=== PATIENT | male | born 1970 | race Caucasian/White ===

== ENCOUNTER 2018-02-16 09:43 | Emergency (ER) | payer BC ==
[2018-02-16] MEDS ORDERED: ONDANSETRON 4 MG TAB.RAPDIS PO ONE (10:23)
[2018-02-16] MEDS ORDERED: PROCHLORPERAZINE EDISYLATE INJ 10 MG/2 ML VIAL IV ONE (10:23)
[2018-02-16] MEDS ORDERED: NORMAL SALINE 1000 ML 1,000 ML IV ONE (10:23)
--- NOTE | 2018-02-16 11:01 | RADIOLOGY REPORT (SQ) ---
EXAM DESCRIPTION: CT HEAD WITHOUT COMPLETED DATE/TIME: 02/16/2018 10:40 am REASON FOR STUDY: frontal headache COMPARISON: None. TECHNIQUE: Axial images acquired through the brain without intravenous contrast. Images reviewed wi th bone, brain and subdural windows. Images stored on PACS. All CT scanners at this facility use dose modulation, iterative reconstruction, and/or weight based d osing when appropriate to reduce radiation dose to as low as reasonably achievable (ALARA). [facility]: Dose Right [facility]: CareDose [facility]: Dose Right [facility]: Teradose 4D [facility]: Mobakids RADIATION DOSE: CT Rad equipment meets quality standard of care and radiation dose reduction techniq ues were employed. CTDIvol: 53.2 mGy. DLP: 1044 mGy-cm. mGy. LIMITATIONS: None. FINDINGS: VENTRICLES: Normal size and contour. CEREBRUM: No masses. No hemorrhage. No midline shift. No evidence for acute infarction. Normal gra y/white matter differentiation. No areas of low density in the white matter. CEREBELLUM: No masses. No hemorrhage. No alteration of density. No evidence for acute infarction. EXTRAAXIAL SPACES: No fluid collections. No masses. ORBITS AND GLOBE: No intra- or extraconal masses. Normal contour of globe without masses. CALVARIUM: No fracture. PARANASAL SINUSES: Mucosal thickening is identified in both maxillary antra. There is opacification of multiple ethmoidal air cells bilaterally. There is almost complete opacification of the right fro ntal sinus and an air-fluid level is identified in the left frontal sinus. SOFT TISSUES: No mass or hematoma. OTHER: No other significant finding. IMPRESSION: No significant intracranial abnormalities were identified. Sinus disease as noted above . Other findings as noted above EVIDENCE OF ACUTE STROKE: NO. COMMENT: Quality ID # [id number]: Final reports with documentation of one or more dose reduction techniques (e.g., Automated exposure control, adjustment of the mA and/or kV according to patient size, use of iterative reconstruction technique) TECHNICAL DOCUMENTATION: JOB ID: [id number] [email or web address]- All Rights Reserved Reading location - IP/workstation name: [email or web address]
[2018-02-16] MEDS ORDERED: CEFTRIAXONE 1 GM/D5W RTU 1 GM/50 ML RTUPB IV ONE (11:09)
[2018-02-16 11:39] LABS: ANION GAP 15 (5-19); BLOOD UREA NITROGEN 12 mg/dL (7-20); CALCIUM 10.2 mg/dL (8.4-10.2); CARBON DIOXIDE 28 mmol/L (22-30); CHLORIDE 100 mmol/L (98-107); GLUCOSE 115 mg/dL (75-110); POTASSIUM 5.3 mmol/L (3.6-5.0); SODIUM 142.7 mmol/L (137-145)
[2018-02-16] MEDS ORDERED: DIPHENHYDRAMINE HCL 50 MG/ML VIAL IV ONE (13:00)
[2018-02-16] MEDS ORDERED: KETOROLAC TROMETHAMINE INJ/PF 30 MG/1 ML SDV IV ONE (13:00)
[2018-02-16] MEDS ORDERED: METOCLOPRAMIDE HCL INJ/PF 10 MG/2 ML SDV IV ONE (13:00)
--- NOTE | 2018-02-16 13:48 | ER Document Report ---
ED General - General Chief Complaint: Headache Stated Complaint: HEAD PAIN, VOMITING Time Seen by Provider: 02/16/18 10:11 TRAVEL OUTSIDE OF THE [place] IN LAST 30 DAYS: No - HPI Patient complains to provider of: Patient coming in for evaluation of headache Notes: Patient coming in for evaluation of headache. Patient states headache ongoing for the last 2-3 days. Patient was recently seen at [facility] diagnosed with sinus infection. Patient is performed x-rays. Patient was given amoxicillin Bayard Zyrtec and Flonase patient states she has been unable taking this medication because of nausea vomiting. Patient denies any head trauma. Denies any fevers at home. Upon my evaluation patient looks nontoxic resting constantly. no photophobia no history of migraines. - Related Data Allergies/Adverse Reactions: No Known Drug Allergies Allergy (Verified 02/16/18 09:43) Past Medical History - Social History Smoking Status: Unknown if Ever Smoked Family History: Hyperlipidemia - father, Hypertension - father, Malignancy - father has prostate cancer Review of Systems - Review of Systems Constitutional: No symptoms reported EENT: No symptoms reported Cardiovascular: No symptoms reported Respiratory: No symptoms reported Gastrointestinal: No symptoms reported Genitourinary: No symptoms reported Male Genitourinary: No symptoms reported Musculoskeletal: No symptoms reported Skin: No symptoms reported Hematologic/Lymphatic: No symptoms reported Neurological/Psychological: Headaches -: Yes All other systems reviewed and negative Physical Exam - Vital signs Vitals: Temp Pulse Resp BP Pulse Ox 98.4 F 58 L 16 177/92 H 98 02/16/18 09:49 02/16/18 09:49 02/16/18 09:49 02/16/18 09:49 02/16/18 09:49 Interpretation: Normal - General General appearance: Appears well, Alert - HEENT Head: Normocephalic, Atraumatic Eyes: Normal Pupils: PERRL - Respiratory Respiratory status: No respiratory distress Chest status: Nontender Breath sounds: Normal Chest palpation: Normal - Cardiovascular Rhythm: Regular Heart sounds: Normal auscultation Murmur: No - Abdominal Inspection: Normal Distension: No distension Bowel sounds: Normal Tenderness: Nontender Organomegaly: No organomegaly - Back Back: Normal, Nontender - Extremities General upper extremity: Normal inspection, Nontender, Normal color, Normal ROM , Normal temperature General lower extremity: Normal inspection, Nontender, Normal color, Normal ROM , Normal temperature, Normal weight bearing. No: Hang's sign - Neurological Neuro grossly intact: Yes Cognition: Normal Orientation: AAOx4 Cordelia Coma Scale Eye Opening: Spontaneous [place] Coma Scale Verbal: Oriented Cordelia Coma Scale Motor: Obeys Commands Cordelia Coma Scale Total: 15 Speech: Normal Motor strength normal: LUE, RUE, LLE, RLE Sensory: Normal - Psychological Associated symptoms: Normal affect, Normal mood - Skin Skin Temperature: Warm Skin Moisture: Dry Skin Color: Normal Course - Re-evaluation Re-evalutation: 02/16/18 15:29 Unclear is why the patient came to the [facility] did not return to his previous care center at [facility]. A CT was performed showing sinusitis disease. Patient was given a dose of Rocephin here was given to migraine cocktails Zofran Compazine and followed by Benadryl ketorolac and Reglan. Explained to patient that this time I see no acute pathology except for sinus infection Rocephin will cover him for 24 hours she should finish up the amoxicillin as prescribed by the previous provider. No signs of any significant infection patient remained afebrile here with normal vital signs patient discharged home. 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 The patient is neurologically intact. Given the extremely low risk of these diagnoses further testing and evaluation for these possibilities does not appear to be indicated at this time. The patient has been instructed to return if the symptoms worsen or change in any way.. - Vital Signs Vital signs: Temp Pulse Resp BP Pulse Ox 98.2 F 62 18 129/77 H 97 02/16/18 14:00 02/16/18 14:00 02/16/18 14:00 02/16/18 14:00 02/16/18 14:00 - Laboratory Result Diagrams: 02/16/18 11:08 Laboratory results interpreted by me: 02/16/18 11:08 Potassium 5.3 H Glucose 115 H Discharge - Discharge Clinical Impression: Sinus headache Condition: Good Disposition: HOME, SELF-CARE Additional Instructions: Your CAT scan today shows diffuse sinus disease in the frontal maxillary sinuses more likely causing your pain. We recommend he continue the amoxicillin as. She prescribed continued pain medication as prescribed along with addition of Tylenol and Motrin. We will prescribe you nausea medication Zofran and Phenergan. Please use this medication as prescribed return to ER symptoms worsen follow-up with your primary care physician. Prescriptions: Ondansetron [Zofran Odt] 4 mg PO Q6 PRN #30 tab.rapdis PRN Reason: For Nausea/Vomiting Promethazine HCl [Phenergan 25 mg Tablet] 25 mg PO Q6 #30 tablet Referrals: SABINA VICK MD [Primary Care Provider] - Follow up in 3-5 days
[2018-02-16 14:01] VITALS: BP 129/77
== END 2018-02-16 14:29 | disposition home or self-care (01) ==
LOC: ER 09:43
DX: R51 Headache (principal); R11.10 Vomiting, unspecified
CPT/HCPCS: 99284; 96361; 96375; 96365; 36415; 80048; 70450; J1200; S0119; J1885; J2765; J0780; J7030; J0696

== ENCOUNTER → 2020-09-17 | Outpatient (CLI) | payer BC ==
[~2020-09-17] MED LIST: COVID-19 VACCINE (PFIZER)/PF 30 MCG/0.3 ML VIAL IM ONE; EPINEPHRINE INJ/PF 1 MG/1 ML AMPULE IM PRN
== END ==
LOC: EMPHEALTH 15:50
PROVIDERS: ATTEND Internal Medicine
DX: Z23 Encounter for immunization (principal)
CPT/HCPCS: 91300